=== PATIENT | female | born 1955 | race Caucasian/White ===

== ENCOUNTER 2019-11-30 08:10 | Day surgery (SDC) | payer OTHER, BC ==
[~2019-11-30] VITALS: Ht 177.8 cm; Wt 66.2 kg
[2019-11-30 09:15] VITALS: BP 122/90
[2019-11-30 16:51] VITALS: BP 113/68
--- NOTE | 2019-11-30 17:25 | NUR ---
LAB RESULTS FAXED TO DR. Lincoln [facility] OFFICE.
== END 2019-11-30 16:30 | disposition home or self-care (01) ==
LOC: DS 08:10 → OR 12:00 → DS 12:00
DX: T81.41XA Infection following a procedure, superficial incisional surgical site, initial encounter (principal); J45.909 Unspecified asthma, uncomplicated; E03.9 Hypothyroidism, unspecified; I50.9 Heart failure, unspecified; Z79.899 Other long term (current) drug therapy; Z96.641 Presence of right artificial hip joint; Z98.890 Other specified postprocedural states; Z88.8 Allergy status to other drugs, medicaments and biological substances; Z96.651 Presence of right artificial knee joint
CPT/HCPCS: J2020; J2250; J2270; J3010; J3370; J3490; Q0092